=== PATIENT | female | born 1945 | race Caucasian/White ===

== ENCOUNTER 2016-10-20 12:48 | Inpatient (IN) | payer OTHER ==
[~2016-10-20 12:48] MED LIST: ABILIFY 2MG2 MG PO; ATIVAN0.5 MG PO; BENADRYL ALLERG25 M1 PO; ESCITALOPRAM10 MG PO; LORAZEPAM1 POW; MEGACE PO; NAMENDA10 MG PO; RISPERDAL0.25 MG PO; RISPERIDONE0.5 MG PO; RITE AID MELATO10 MG PO; TRAMADOL50 MG PO; TRAZODONE HYDRO50 MG PO; TRAZODONE100 MG PO; TRAZODONE50 MG PO
--- NOTE | 2016-10-20 13:00 | NUR ---
JERRI FROM SNF AFTER STAFF NOTED TREMBLING DURING SHOWER. PT WITH DEMENTIA, NONVERBAL AT BASELINE, PER W10 "BRIEF UNRESPONSIVE EPISODE/UNCONTROLLABLE SHAKING." PER W10 BP 100/72 AFTER EPISODE, 02 SATS 94% ON 15L NRB. ON EMS ARRIVAL BP 120S/70S, 02 SATS MID-HIGH 90S ON RA. PT ARRIVES NONVERBAL, MOVING ARMS PURPOSEFULLY WITH STIMULI, DOES NOT FOLLOW COMMANDS.
--- NOTE | 2016-10-20 13:27 | NUR ---
PCXR DONE, PT TO CT SCAN. PRIVATE AID AT BEDSIDE, SHE HAS WORKED W/PT FOR SEVERAL YEARS AND REPORTS PT IS CURRENTLY AT HER BASELINE IN EVERY WAY. ALSO REPORTS PT HAS HAD SIMILAR EPISODES IN THE PAST, DOES NOT BELIEVE PT EVER HAD A TRUE WORKUP SHE BELIEVES THAT PT'S SPOUSE DID NOT WANT IT (SPOUSE HAD BEEN MAKING DECISIONS FOR PT BUT HAS NOW ; DAUGHTER LIVES OUT OF STATE).
--- NOTE | 2016-10-20 13:40 | ED GENERAL ADULT ---
History of Present Illness General Chief Complaint: Syncope and Near-Syncope Stated Complaint: NEAR SYNCOPE Source: EMS, friend Exam Limitations: clinical condition Vital Signs & Intake/Output Vital Signs & Intake/Output Vital Signs Date Time Temp Pulse Resp B/P Pulse O2 O2 Flow FiO2 Ox Delivery Rate 10/22 1504 98.8 80 20 150/98 ED Intake and Output 10/23 0000 10/22 1200 Intake Total 820 100 Output Total Balance 820 100 Intake, IV 100 Intake, Oral 820 Allergies Coded Allergies: Penicillins (UNKNOWN 10/20/16) STATINS (UNKNOWN 03/22/15) Sulfa (Sulfonamide Antibiotics) (UNKNOWN 10/20/16) shellfish derived (UNKNOWN 10/20/16) SEAFOOD Uncoded Allergies: UNSPECIFIED MED (PER [place] TO UNSPECIFIED MED? 05/25/14) Reconcile Medications Acetaminophen (Tylenol) 325 MG TABLET 2 TAB PO Q6HP PRN PAIN/FEVER (Reported) Acetaminophen (Acephen) 120 MG SUPP.RECT 650 MG NE Q6HP PRN PAIN/FEVER ( Reported) Bisacodyl (Dulcolax) 10 MG SUPP.RECT 1 SUP RC DAILY PRN CONSTIPATION IF MOM INEFFECTIV (Reported) Cranberry Extract (Cranberry) (Unknown Strength) CAPSULE (Unknown Dose) PO DAILY UTI PROPHYLAXIS (Reported) Docusate Sodium (Colace) 100 MG CAPSULE 1 CAP PO DAILY CONSTIPATION (Reported ) Levetiracetam (Keppra) 500 MG TABLET 1 TAB PO BID Seizure Lorazepam (Ativan) 0.5 MG TABLET 1 TAB PO TID AGITATION (Reported) Magnesium Hydroxide (Milk Of Magnesia) 400 MG/5 ML ORAL.SUSP 5 ML PO BID PRN CONSTIPATION (Reported) Na Phos,M-B/Na Phos,Di-Ba (Fleet Enema) 19 GRAM-7 GRAM/118 ML ENEMA 1 E RC ONCE PRN CONSTIPATION (Reported) Naloxone HCl (Narcan) 4 MG/ACTUATION SPRAY OPIOID OVERDOSE (Reported) Nitrofurantoin Monohyd/M-Cryst (Macrobid 100 MG Capsule) 100 MG CAPSULE 50 MG PO DAILY UTI PROPHYLAXIS (Reported) Oxycodone HCl/Acetaminophen (Percocet 5-325 MG Tablet) 5 MG-325 MG TABLET 1 TAB PO TID PAIN (Reported) Sertraline HCl (Zoloft) 100 MG TABLET 200 MG PO DAILY MENTAL HEALTH (Reported ) Trazodone HCl 50 MG TABLET 50 MG PO DAILY AGITATION (Reported) Trazodone HCl 50 MG TABLET 25 MG PO DAILY AGITATION (Reported) TRAZODONE HCL (Trazodone HCl) 100 MG TABLET 1 TAB PO AT BEDTIME AGITATION ( Reported) Triage Note: JERRI FROM SNF AFTER STAFF NOTED TREMBLING DURING SHOWER. PT WITH DEMENTIA, NONVERBAL AT BASELINE, PER W10 "BRIEF UNRESPONSIVE EPISODE/UNCONTROLLABLE SHAKING." PER W10 BP 100/72 AFTER EPISODE, 02 SATS 94% ON 15L NRB. ON EMS ARRIVAL BP 120S/70S, 02 SATS MID-HIGH 90S ON RA. PT ARRIVES NONVERBAL, MOVING ARMS PURPOSEFULLY WITH STIMULI, DOES NOT FOLLOW COMMANDS. Triage Nurses Notes Reviewed? yes HPI: this patient is a 71-year-old female who is brought into the emergency department today by ambulance from [facility] accompanied by her home theater experience expert who has been with her for approximately 2-1/2 years for evaluation of a shaking episode at the facility. The patient is nonverbal at baseline. The patient's aide reported that she is currently acting at her baseline. The patient's aide reported that she did not witness this specific episode, but when she was going to visit the patient, she saw that they had laid her down on the floor after the episode with a nasal cannula in. She was told of the patient started shaking during the shower. The patient's aide reported that she has had many episodes similar to this in the past for which she has never been hospitalized for. She does not have an official diagnosis of seizures, but reported that she seems to have seizure-like activity every once in a while. The patient does not have any vomiting or diarrhea. No incontinence of stool or bowel. No tongue biting. The patient's approximately 4 months ago who was caring for her. Her daughter is now her power of trademark attorney. (RON BANUELOS PA-C) Past History Travel History Traveled to [place] past 21 day No Medical History Any Pertinent Medical History? see below for history Neurological: Alzheimer's disease, dementia, Parkinson's disease Cardiovascular: aortic aneurysm, hypertension, PAD Gastrointestinal: GERD Musculoskeletal: falls, osteoarthritis Surgical History Surgical History: N Psychosocial History What is your primary language Maori Tobacco Use: Cognitive Impairment ETOH Use: 6 Family History Hx Contributory? No (RON BANUELOS PA-C) Review of Systems Review of Systems Constitutional: Reports: no symptoms. Neurological/Psychological: Reports: see HPI. Comments unable to obtain full review of systems due to this patient's age. (LAKISHA FINN,RON) Physical Exam Physical Exam General Appearance: well developed/nourished, no apparent distress, alert, awake Comments: Well-developed well-nourished person in no acute distress HEENT: Normal EENT exam, head normocephalic, moist mucous membranes, head atraumatic. No Bony deformities or step-offs of the skull PERRLA bilaterally Nose is atraumatic. Neck: Supple, no lymphadenopathy Back: Normal inspection Cardiovascular: Regular rate and rhythm with no murmurs, rubs, or gallops Respiratory: No respiratory distress. Breath sounds clear to auscultation bilaterally with no wheezes, rales, rhonchi Abdomen: Soft, nontender nondistended, no appreciable organomegaly. Normal bowel sounds. No ascites Extremity: No edema, normal and equal pulses. Neuro: Alert, cranial nerves II through XII grossly intact. No facial droop Skin: No appreciable rash on exposed skin, skin is warm and dry. Psych: Mood and affect is normal Core Measures ACS in differential dx? Yes CVA/TIA Diagnosis: No Severe Sepsis Present: No Septic Shock Present: No (LAKISHA FINN,RON) Progress Differential Diagnoses I considered the following diagnoses in my evaluation of the patient: [TIA/CVA, seizure, syncope, PE, ACS, pneumonia, urinary tract infection] Diagnostic Imaging: Viewed by Me: Radiology Read, CT Scan. Discussed w/RAD: Radiology Read, CT Scan. Radiology Impression: PATIENT: CONCHITA WILKINSON PRESENT AGE: 71 PATIENT ACCOUNT NO: [id number] : 43 LOCATION: [facility] ORDERING PHYSICIAN: RON BANUELOS PA-C SERVICE DATE: 10/20/166014 EXAM TYPE: RAD - CT HEAD WO IV CONTRAST; XRY-PORTABLE CHEST XRAY EXAMINATION: CT HEAD WITHOUT CONTRAST CHEST X-RAY CLINICAL INFORMATION: Evaluate for intracranial hemorrhage COMPARISON: CT head dated 05/25/2014 TECHNIQUE: Contiguous axial CT slices through the head. AP chest CT head DLP: 1058.32 FINDINGS: CT HEAD: Examination is degraded by patient motion despite of the repeat images. No definite evidence of acute intra-axial or extra-axial hemorrhage. No definite evidence of acute mass effect or midline shift. Prominence of the ventricles and sulci compatible with age-related involutional changes. Periventricular white matter low- attenuation consistent with microvascular ischemic disease. No acute loss of waterman-white differentiation appreciated. Wedge-shaped encephalomalacia right inferior cerebellum compatible with old infarct represents an interval change compared to the prior study. Stable 1.2 cm calcified meningioma noted again along the left posterior falx. Visualized paranasal sinuses and the mastoid air cells are well aerated. Small polyp or retention cyst suspected in the right sphenoid sinus. Visualized osseous structures are intact. CHEST X-RAY Stable cardiomediastinal silhouette. Further uncoiling of the thoracic aorta. Linear subsegmental atelectatic changes noted in the left base. No acute airspace opacity. Mild prominence of the pulmonary markings compatible with chronic change. Degenerative changes bilateral shoulders. IMPRESSION: CT HEAD CT head degraded by patient motion 1. No acute intracranial pathology. 2. 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 3. Moderate thoracic ischemic disease. 4. Stable calcified meningioma along the left posterior falx. CHEST X-RAY No acute pulmonary disease. Chronic changes. DICTATED BY: TESFAYE DE LEON MD DATE/TIME DICTATED:10/20/161356 TRENCH DIGGER HELPER:EMMA DATE/TIME TRANSCRIBED:10/20/161356 CONFIDENTIAL, DO NOT COPY WITHOUT APPROPRIATE AUTHORIZATION. <Electronically signed in Other Vendor System> SIGNED BY: TESFAYE DE LEON MD 10/20/16 1416 Initial ED EKG: normal axis, normal intervals, no ST T wave changes, 74 BPM Repeat EKG: unchanged (75BPM) Comments: 10/20/2016 2:39:31 PM: RN performed stool guaiac. Brown stool heme-negative guaiac 10/20/2016 3:11:15 PM: Dr. Johnson at the patient's bedside for [id number] evaluation. 10/20/2016 3:25:46 PM: Patient is actively seizing. We'll give her 500 IV of Keppra and 1 mg of Ativan. Patient's aid reported that she has seen a neurologist in the past but is unsure of who this was. We will page our on-call neurologist. This patient will be admitted to the hospital. 10/20/2016 3:32:12 PM: I spoke to this patient's daughter and power of trademark attorney, SHELLI. Her cell phone number is [phone] 10/20/2016 3:38:00 PM: I discussed this patient with on-call neurologist, Dr. Murcia. He will consult on this patient in the morning. (RON BANUELOS PA-C) Differential Diagnoses I considered the following diagnoses in my evaluation of the patient: Plan of Care: Orders Procedure Date/time Status Turn and Reposition 10/22 1222 Active Skin Integrity Protocol 10/22 1222 Active Discharge Patient 10/[address] Chaves for admission. Dr. Hernandez was consulted. Patient was given a dose of IV Ativan, IV Keppra was given. Patient with history of similar episodes but no formal workup by neurology that is known at this time. (XIN RODRIGUEZ,MERI) Departure Departure Disposition: STILL A PATIENT Condition: Stable Clinical Impression Primary Impression: Seizure Referrals: ARYAN RODRIGUEZ,POORNIMA Severino (PCP/Family) Departure Forms: Customer Survey General Discharge Information Prescriptions: Current Visit Scripts Levetiracetam (Keppra) 1 TAB PO BID #60 TAB Admission Note Spoke With: MORGAN CHAVES MD Documentation of Exam: Documentation of any treatments & extenuating circumstances including Concerns Regarding Discharge (functional status, medication knowledge or non-compliance, living conditions, etc.) that warrant an admission rather than observation: [ This patient is a 71-year-old female with a past medical history including hypertension, Alzheimer's disease, and Parkinson's who presented to the emergency department from a SNF. The patient has been actively seizing here in the emergency department. She will need to be admitted to telemetry for neurology consultation, IV Keppra, EEG, repeat chest x-ray, trend the labs, and close monitoring. Premature discharge could prove medically harmful.] (RON BANUELOS PA-C) Departure Time of Disposition: 1604 Admission Note Spoke With: MORGAN CHAVES MD PA/CATERING DRIVER Co-Sign Statement Statement: ED Attending supervision documentation- [X] I saw and evaluated the patient. I have also reviewed all the pertinent lab results and diagnostic results. I agree with the findings and the plan of care as documented in the PA's/CATERING DRIVER's documentation. [X] I have reviewed the ED Record and agree with the PA's/CATERING DRIVER's documentation. [] Additions or exceptions (if any) to the PAs/CATERING DRIVER's note and plan are summarized below: [] (XIN RODRIGUEZ,MERI) Critical Care Note Critical Care Note Critical Care Time: 30-74 min (LAKISHA FINN,RON) Critical Care Note Critical Care Time: 30-74 min (RON BANUELOS PA-C)
[2016-10-20 13:52] LABS: ABSOLUTE BASOPHIL COUNT 0 /CUMM (0.0-0.2); ABSOLUTE EOSINOPHIL COUNT 0.1 /CUMM (0.0-0.7); ABSOLUTE MONOCYTE COUNT 0.5 /CUMM (0.10-0.60); BASOPHIL % 0.3 % (0.0-2.0); EOSINOPHIL % 0.7 % (0-5); MEAN CORPUSCULAR HGB 26.4 PG (27.0-31.0)
[2016-10-20 13:57] LABS: ABSOLUTE GRANULOCYTE CT 7.5 /CUMM (1.4-6.5); ABSOLUTE LYMPH COUNT 0.8 /CUMM (1.2-3.4); HEMATOCRIT 35.8 % (37-47); MEAN CORPUSCULAR HGB CONC 33.2 G/DL (33.0-37.0); MEAN CORPUSCULAR VOLUME 79.6 FL (81.0-99.0); MEAN PLATELET VOLUME 8.5 FL (7.4-10.4); RBC DISTRIBUTION WIDTH 16.3 % (11.5-14.5)
[2016-10-20 14:10] LABS: WHITE BLOOD CELL COUNT 8.9 /CUMM (4.8-10.8)
--- NOTE | 2016-10-20 14:13 | NUR ---
BACK FROM CT. BLOOD SENT (SST/LAV/BLUE/PRIETO). STRAIGHT CATH FOR 50CC CLEAR YELLOW URINE, URINE TRIO SENT. PT SEEN BY CLIVE BANUELOS.
[2016-10-20 14:14] LABS: GRANULOCYTE % 84.7 % (42.2-75.2); PLATELET COUNT 256 /CUMM (130-400)
--- NOTE | 2016-10-20 14:16 | RADIOLOGY REPORT ---
EXAMINATION: CT HEAD WITHOUT CONTRAST CHEST X-RAY CLINICAL INFORMATION: Evaluate for intracranial hemorrhage COMPARISON: CT head dated 05/25/2014 TECHNIQUE: Contiguous axial CT slices through the head. AP chest CT head DLP: 1058.32 FINDINGS: CT HEAD: Examination is degraded by patient motion despite of the repeat images. No definite evidence of acute intra-axial or extra-axial hemorrhage. No definite evidence of acute mass effect or midline shift. Prominence of the ventricles and sulci compatible with age-related involutional changes. Periventricular white matter low-attenuation consistent with microvascular ischemic disease. No acute loss of waterman-white differentiation appreciated. Wedge-shaped encephalomalacia right inferior cerebellum compatible with old infarct represents an interval change compared to the prior study. Stable 1.2 cm calcified meningioma noted again along the left posterior falx. Visualized paranasal sinuses and the mastoid air cells are well aerated. Small polyp or retention cyst suspected in the right sphenoid sinus. Visualized osseous structures are intact. CHEST X-RAY Stable cardiomediastinal silhouette. Further uncoiling of the thoracic aorta. Linear subsegmental atelectatic changes noted in the left base. No acute airspace opacity. Mild prominence of the pulmonary markings compatible with chronic change. Degenerative changes bilateral shoulders. IMPRESSION: CT HEAD CT head degraded by patient motion 1. No acute intracranial pathology. 2. 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 3. Moderate thoracic ischemic disease. 4. Stable calcified meningioma along the left posterior falx. CHEST X-RAY No acute pulmonary disease. Chronic changes.
--- NOTE | 2016-10-20 14:22 | NUR ---
PT INCONTINENT OF URINE AND STOOL, CLEANED AND CHANGED, GUIAC NEG, SKIN INTACT WITH SOME SCARS NOTED. AWAITING RESULTS, PRIVATE AIDE AT BEDSIDE.
[2016-10-20] MEDS ORDERED: PERCOCET 5-3251 EACH PO (14:36)
[2016-10-20] MEDS ORDERED: ATIVAN0.5 M1 PO (14:36)
[2016-10-20] MEDS ORDERED: MACROBID 100 M100 MG PO (14:37)
[2016-10-20] MEDS ORDERED: TRAZODONE HCL50 M1 PO (14:37)
[2016-10-20] MEDS ORDERED: NARCAN4 MG (14:38)
[2016-10-20] MEDS ORDERED: ZOLOFT100 M1 PO (14:38)
[2016-10-20] MEDS ORDERED: COLACE100 M1 PO (14:38)
[2016-10-20] MEDS ORDERED: TYLENOL325 M1 PO (14:39)
[2016-10-20] MEDS ORDERED: CRANBERRY200 MG PO (14:39)
[2016-10-20] MEDS ORDERED: MILK OF MA400 MG/52 PO (14:41)
[2016-10-20] MEDS ORDERED: ACEPHEN120 M1 PR (14:41)
[2016-10-20] MEDS ORDERED: FLEET ENEMA133 ML RC (14:42)
[2016-10-20] MEDS ORDERED: DULCOLAX10 M1 RC (14:42)
--- NOTE | 2016-10-20 15:44 | NUR ---
MST WAS ATTEMPTING REPEAT EKG PT HAD GENERALIZED TONIC-CLONIC SEIZURE. DR LAUREN AND CLIVE BANUELOS AT BEDSIDE, SEIZURE ACTIVITY LASTED APPROX 60-90 SEC, PT GIVEN ATIVAN 1MG IV BUT SEIZURE ACTIVITY APPEARED TO HAVE RESOLVED SPONTANEOUSLY.
--- NOTE | 2016-10-20 17:11 | NUR ---
PT APPEARS COMFORTABLE/VSS, NO FURTHER SZ ACTIVITY.
--- NOTE | 2016-10-20 17:18 | History & Physical ---
GREG MESA MD 10/20/16 3555: General Information and HPI MD Statement: I have seen and personally examined CONCHITA WILKINSON and documented this H&P. The patient is a 71 year old F who presented with a patient stated chief complaint of [seizures]. Source of Information: patient, family, W10 Exam Limitations: unable to give history History of Present Illness: 71-year-old female with PMH of alzheimers, parkinsons, aortic anerysm, HTN, presented for possible seizure. As per W10, pt was shaking while in the shower. BP was 100/72, sat 94% on 15L NRB. On ED presentation, she was satting well on RA. As pt is nonverbal at baseline and no information can be obtained from her, I got most of the information from the nurse. Pt has lived in an assisted living ( [facility]) until 2 days ago, she moved to [facility]. As per her home health aide for years (who was not present at bedside), pt has baseline right arm and lip twitches, and intermittently has generalized shaking. Her (who usually makes all the decisions for her) recently 4 months ago. In the ED, she had a 2 minute episode of generalized shaking with foaming. She was given one time ativan and keppra in the ED. Dr. Colón was called from the ED and he will see the pt in the morning. As per daughter (whom we spoke to over the phone, and she lives in [place]), pt had 2 seizure episodes prior, even though she has never been formally diagnosed. Pt's code status is DNR/DNI. Allergies/Medications Allergies: Coded Allergies: Penicillins (UNKNOWN 10/20/16) STATINS (UNKNOWN 03/22/15) Sulfa (Sulfonamide Antibiotics) (UNKNOWN 10/20/16) shellfish derived (UNKNOWN 10/20/16) SEAFOOD Uncoded Allergies: UNSPECIFIED MED (PER [place] TO UNSPECIFIED MED? 05/25/14) Home Med list Acetaminophen (Tylenol) 325 MG TABLET 2 TAB PO Q6HP PRN PAIN/FEVER (Reported) Acetaminophen (Acephen) 120 MG SUPP.RECT 650 MG DE Q6HP PRN PAIN/FEVER ( Reported) Bisacodyl (Dulcolax) 10 MG SUPP.RECT 1 SUP RC DAILY PRN CONSTIPATION IF MOM INEFFECTIV (Reported) Cranberry Extract (Cranberry) (Unknown Strength) CAPSULE (Unknown Dose) PO DAILY UTI PROPHYLAXIS (Reported) Docusate Sodium (Colace) 100 MG CAPSULE 1 CAP PO DAILY CONSTIPATION (Reported ) Lorazepam (Ativan) 0.5 MG TABLET 1 TAB PO TID AGITATION (Reported) Magnesium Hydroxide (Milk Of Magnesia) 400 MG/5 ML ORAL.SUSP 5 ML PO BID PRN CONSTIPATION (Reported) Na Phos,M-B/Na Phos,Di-Ba (Fleet Enema) 19 GRAM-7 GRAM/118 ML ENEMA 1 E RC ONCE PRN CONSTIPATION (Reported) Naloxone HCl (Narcan) 4 MG/ACTUATION SPRAY OPIOID OVERDOSE (Reported) Nitrofurantoin Monohyd/M-Cryst (Macrobid 100 MG Capsule) 100 MG CAPSULE 50 MG PO DAILY UTI PROPHYLAXIS (Reported) Oxycodone HCl/Acetaminophen (Percocet 5-325 MG Tablet) 5 MG-325 MG TABLET 1 TAB PO TID PAIN (Reported) Sertraline HCl (Zoloft) 100 MG TABLET 200 MG PO DAILY MENTAL HEALTH (Reported ) TRAZODONE HCL (Trazodone HCl) 100 MG TABLET 1 TAB PO AT BEDTIME AGITATION ( Reported) Trazodone HCl 50 MG TABLET 50 MG PO DAILY AGITATION (Reported) Trazodone HCl 50 MG TABLET 25 MG PO DAILY AGITATION (Reported) Past History Travel History Traveled to [place] past 21 day No Medical History Neurological: Alzheimer's disease, dementia, Parkinson's disease Cardiovascular: aortic aneurysm, hypertension, PAD Gastrointestinal: GERD Musculoskeletal: falls, osteoarthritis Surgical History Surgical History: unobtainable Past Family/Social History Family History Relations & Conditions if any Relation not specified for: *No pertinent family history Psychosocial History Where do you live? Intermediate Facility Functional Ability ADLs Needs Assist: dressing, eating, toileting, bathing. IADLs Needs Assist: shopping, housework, finances, food prep, telephone, transportation, medication admin. Review of Systems Review of Systems Constitutional: Reports: see HPI. Exam & Diagnostic Data Last 24 Hrs of Vital Signs/I&O Vital Signs Date Time Temp Pulse Resp B/P Pulse O2 O2 Flow FiO2 Ox Delivery Rate 10/20 1711 98.8 82 18 151/70 94 Room Air 10/20 1556 98.8 75 22 114/56 93 Room Air 10/20 1534 98.3 79 18 137/55 95 Room Air 10/20 1526 166/90 10/20 1450 98.9 82 18 141/81 96 Room Air 10/20 1423 96 10/20 1254 96.6 87 18 123/82 95 Room Air Intake & Output 10/20 1600 10/20 0800 10/20 0000 Intake Total Output Total 60 Balance -60 Output, Urine 60 Physical Exam General Appearance Does not respond to verbal or physical stimuli, lying on the bed comfortably with intermittent right arm twitches Skin No Significant Lesion HEENT Atraumatic Neck Supple, No JVD, +2 Carotid Pulse wo Bruit Lymphatic Axillary nl, Cervical nl Cardiovascular Regular Rate, Normal S1, Normal S2, No Murmurs, Gallops, Rubs Lungs Clear to Auscultation, Normal Air Movement Abdomen Normal Bowel Sounds, Soft, No Tenderness Extremities No Edema, Normal Pulses Last 24 Hrs of Labs/Sergio: Laboratory Tests 10/20/16 1410: Urinalysis LIGHT H, Urine Color YEL, Urine Clarity HAZY H, Urine pH 6.0, Ur Specific [place] >= 1.030, Urine Protein 30 H, Urine Ketones NEG, Urine Nitrite NEG, Urine Bilirubin NEG, Urine Urobilinogen 0.2, Ur Leukocyte Esterase NEG, Ur Microscopic SEDIMENT EXAMINED, Urine RBC 1-3, Urine WBC 1-3 H, Ur Epithelial Cells FEW, Granular Casts 5-10 H, Urine Hemoglobin SMALL H, Urine Glucose NEG 10/20/16 1340: Anion Gap 13, Estimated GFR > 60, BUN/Creatinine Ratio 14.4, Glucose 98, Calcium 9.0, Total Bilirubin 0.6, AST 17, ALT 27, Alkaline Phosphatase 121, Troponin I < 0.01, Total Protein 7.0, Albumin 3.7, Globulin 3.3, Albumin/Globulin Ratio 1.1, Prolactin 19.7 H, CBC w Diff NO MAN DIFF REQ, RBC 4.50, MCV 79.6 L, MCH 26.4 L, RDW 16.3 H, MPV 8.5, Gran % 84.7 H, Lymphocytes % 8.6 L, Monocytes % 5.7, Eosinophils % 0.7, Basophils % 0.3, Absolute Granulocytes 7.5 H, Absolute Lymphocytes 0.8 L, Absolute Monocytes 0.5, Absolute Eosinophils 0.1, Absolute Basophils 0, PUBS MCHC 33.2 Diagnostic Data EKG Results SR 83 QTc 492 CXR Results CHEST X-RAY No acute pulmonary disease. Chronic changes. Other Results IMPRESSION: CT HEAD CT head degraded by patient motion 1. No acute intracranial pathology. 2. 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 3. Moderate thoracic ischemic disease. 4. Stable calcified meningioma along the left posterior falx. DICTATED BY: TESFAYE DE LEON MD DATE/TIME DICTATED:10/20/161356 Assessment/Plan Assessment: 71-year-old female with PMH of alzheimers, parkinsons, aortic anerysm, HTN, presented for generalized shaking, suspicious for seizure. She had a 2 minute episode of generalized shaking associated with foaming at the mouth in the ED, for which keppra and ativan was given. # Seizure - Neuro (Dr. Colón) was called by ED and will see patient tomorrow. We called for a formal consult as well * EEG * Seizure precautions * Keppra for seizures # Continue home meds Percocet 5/325 1 tabe tid 6am, 2pm, 9pm Ativan 0.5mg po tid 8am 2pm 8pm/hs Macrobid 50 mg PO qd 9am (prophylaxis, no stop date) Cranberry tab qd 9am Trazodone 50 mg po 3pm for agitation Trazodone 25 mg qd 6am Zoloft 200 mg po qd 9am Colace 100 mg po qd 9am Dulcolax 10 mg supp prn Fleet enema DE PRN Milk mag prn Tylenol 325 mg po for general discomfort Narcan PRN Diet: Regular DVT ppx: mech and pharm DNR/DNI As Ranked By This Provider Problem List: 1. Seizure Core Measures/Miscellaneous Acute Coronary Syndrome ACS Diagnosis: No Cerebrovascular Accident CVA/TIA Diagnosis: No Congestive Heart Failure CHF Diagnosis: No Venous Thromboembolism VTE Risk Factors: Age > 40 VTE Prophylaxis Ordered Inpt: Mech & Pharm No Mech VTE prophylaxis d/t: No contraindications No VTE Pharm Prophylaxis d/t: No contraindications VTE Diagnosis: No VTE Type: NONE VTE Confirmed by (Test): NONE Severe Sepsis Severe Sepsis Present: No Septic Shock Septic Shock Present: No Miscellaneous Documentation Attending Case Discussed With: MORGAN CHAVES MD Primary Care Physician: POORNIMA BAEZA MD Patient sees these Specialists Unknown Level of Patient Care: Telemetry LEIF STOKES 10/20/16 2137: Resident Review Statement Resident Statement: examined this patient, discussed with internship, agreed with internship, discussed with family, reviewed EMR data (avail), discussed with nursing , discussed with case mgmt, reviewed images, amended to note Other Findings: 71-year-old female with a past medical history of Alzheimer's, Parkinson's, aortic aneurysm, hypertension presented [facility] ED [facility] a [facility] where she may have underwent a possible seizure. Patient is nonverbal at baseline and so much of the history was obtained from the W 10 as well as the nursing facility. Apparently patient has had baseline right arm and lip twitches as well as intermittent generalized shaking. Going through ED records reveals that she was brought in by ambulance from [facility] facility after she was found to have trembling while taking a shower with him brief episode of unresponsiveness. Her blood pressure at that time was 100/72 with O2 saturations 94% on 15 L of nonrebreather mask however patient's oxygen saturations are 93% on room air. In the ER she had a two-minute episode of generalized shaking with warming and was given a one-time dose of Ativan and 500 mg of IV Keppra. Neurology was consulted from ER and he will evaluate the patient in the morning. Rest of the history please refer to 's note above. Vitals at the time of admission blood pressure 114/56, respiratory rate 22, pulse 75, afebrile saturating 93% on room air. Physical exam is much limited as patient is nonverbal and completely mute. HEENT revealed PERRLA, dry mucous membranes. Cardiovascular exam was benign with normal S1, S2, no S3 or S4 or murmurs or rubs or gallops appreciated. Chest was clear to auscultation bilaterally. Abdominal exam was benign and abdomen soft, nontender, nondistended with normal bowel sounds in all 4 quadrants. Examination of the lower extremities did not reveal any edema. Labs pertinent for microcytic anemia withan H&H of 11.9/35.8, platelet count of 256,000. Serum chemistries were unremarkable with a sodium of 141, potassium of 3.7, BUN 13, creatinine 0.9 and a normal blood glucose of 98. LFTs were unremarkable and troponin was negative at 0.01. Of note his serum prolactin was elevated to 19.4. UA is hazy with proteinuria, 1-3 white blood cells, granular casts and hemoglobin. Chest x-ray did not reveal any acute pulmonary disease and a CT head was negative for any acute intracranial pathology. 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 There is also stable calcified meningioma along the left posterior falx. EKG revealed normal sinus rhythm, heart rate of 83 with a QTC of 492. Assessment and plan Admit patient to telemetry. # Seizure 2/2 meningimoma? (no abnormalities on labs) She already received a dose of 500 of IV Keppra and 1 mg of IV Ativan We'll continue her on Keppra 500 mg twice a day IV for now Neurology consult in a.m. Follow-up EEG Maintain on seizure precautions Maintain all aspiration precautions #Anxiety and agitation Continue on Zoloft. For now will hold on trazodone. Avoid delirium triggers. DVT prophylaxis Heparin 5000 international units 3 times a day subcutaneous Diet Regular and thins as per W 10 CODE STATUS DNR/DNI - confirmed with daughter who is POA. MORGAN CHAVES MD 10/21/16 1604: Attending MD Review Statement Attending Statement Attending MD Statement: examined this patient, discuss w/resident/PA/BULB GROWER, agreed w/resident/PA/BULB GROWER, reviewed EMR data (avail) Attending Assessment/Plan: 71F PMH HTN, dementia admitted for new onset seizures. Patient had witnessed GTC seizure in SNF and in ED, and per family has been having similar episodes 1- 2x/yr for several years. Currently well with no complaints, stable vitals, labs reviewed. Plan - Admit to telemetry - Continue Keppra 500mg BID - Neurology consult - OBtain EEG - Monitor electrolytes - Continue home medications - Seizure precautions - DVT PPx
--- NOTE | 2016-10-20 17:55 | NUR ---
SEEN BY HOUSE STAFF.
--- NOTE | 2016-10-20 18:17 | NUR ---
REPORT CALLED TO HARIKA ON [address], PT TO GO TO 174-02 AND ROOM IS READY.
[2016-10-20 19:00] VITALS: BP 122/78
[2016-10-21 00:58] VITALS: BP 146/92
[2016-10-21 08:00] VITALS: BP 140/100
[2016-10-21 08:25] LABS: ABSOLUTE BASOPHIL COUNT 0 /CUMM (0.0-0.2); ABSOLUTE EOSINOPHIL COUNT 0.1 /CUMM (0.0-0.7); ABSOLUTE GRANULOCYTE CT 5.7 /CUMM (1.4-6.5); ABSOLUTE LYMPH COUNT 1.2 /CUMM (1.2-3.4); ABSOLUTE MONOCYTE COUNT 0.5 /CUMM (0.10-0.60); BASOPHIL % 0.4 % (0.0-2.0); EOSINOPHIL % 1.1 % (0-5); GRANULOCYTE % 76.3 % (42.2-75.2); MEAN CORPUSCULAR HGB 26.5 PG (27.0-31.0); MEAN CORPUSCULAR HGB CONC 33.2 G/DL (33.0-37.0); MEAN CORPUSCULAR VOLUME 79.9 FL (81.0-99.0); MEAN PLATELET VOLUME 8.9 FL (7.4-10.4); PLATELET COUNT 247 /CUMM (130-400); RBC DISTRIBUTION WIDTH 16.4 % (11.5-14.5); WHITE BLOOD CELL COUNT 7.5 /CUMM (4.8-10.8)
--- NOTE | 2016-10-21 08:33 | PN- Housestaff ---
See Addendum Subjective Follow-up For: Generalized shaking, suspicious for seizure Tele-Events Since Last Visit: NSR HR 70-80, no overnight events. Subjective: Patient seen and examined at bedside this AM. She is sitting up comfortably in bed and alert. She is non-verbal at baseline and unable to provide ROS or answer any questions. She is surrounded by padding if other episodes of generalized shaking should occur (though no futher reports of this since the ED). Review of Systems Constitutional: Reports: see HPI. Objective Last 24 Hrs of Vital Signs/I&O Vital Signs Date Time Temp Pulse Resp B/P Pulse O2 O2 Flow FiO2 Ox Delivery Rate 10/21 0800 98.6 66 20 140/100 94 Room Air 10/21 0058 99.4 83 20 146/92 95 Room Air 10/20 1900 Room Air Room Air 10/20 1900 98.9 82 18 122/78 96 Room Air 10/20 1830 97.7 85 20 150/69 96 Room Air 10/20 1711 98.8 82 18 151/70 94 Room Air 10/20 1556 98.8 75 22 114/56 93 Room Air 10/20 1534 98.3 79 18 137/55 95 Room Air 10/20 1526 166/90 10/20 1450 98.9 82 18 141/81 96 Room Air 10/20 1423 96 10/20 1254 96.6 87 18 123/82 95 Room Air Intake & Output 10/21 1600 10/21 0800 10/21 0000 Intake Total 100 Output Total Balance 100 Intake, IV 100 Physical Exam General Appearance: Alert, No Acute Distress Skin: No Significant Lesion HEENT: Atraumatic, Mucous Membr. moist/pink Neck: Supple, No JVD, No thryomegaly Lymphatic: Axillary nl, Cervical nl Cardiovascular: Regular Rate, Normal S1, Normal S2, No Murmurs, Gallops, Rubs Lungs: Clear to Auscultation, Normal Air Movement Abdomen: Normal Bowel Sounds, Soft, No Tenderness Neurological: Normal Tone Extremities: No Clubbing, No Cyanosis, No Edema Current Medications: Current Medications Sig/Fabby Start time Last Medication Dose Route Stop Time Status Admin Acetaminophen 650 MG Q6P PRN 10/20 2044 AC PO Docusate Sodium 100 MG DAILY 10/21 1000 AC 10/21 PO 0852 Heparin Sodium 5,000 UNIT Q8 10/20 2200 AC 10/21 (Porcine) SC 0702 Hydromorphone HCl 2 MG Q6P PRN 10/20 2044 AC PO Levetiracetam 500 MG Q12H 10/21 1600 AC Sodium Chloride 100 ML IV Levetiracetam 500 MG BID 10/21 0400 DC 10/21 Sodium Chloride 100 ML IV 0436 Levetiracetam 500 MG ONCE ONE 10/20 1530 DC 10/20 Sodium Chloride 100 ML IV 10/20 1544 1533 Lorazepam 0.5 MG TID 10/20 2199 AC 10/21 PO 10/27 2159 0901 Lorazepam 1 MG ONCE ONE 10/20 1530 DC 10/20 IV 10/20 1531 1523 Lorazepam 0 .STK-MED ONE 10/20 1523 DC .ROUTE Oxycodone/ 1 TAB Q6P PRN 10/20 2044 AC Acetaminophen PO Sertraline HCl 200 MG DAILY 10/21 1000 AC 10/21 PO 0851 Last 24 Hrs of Lab/Sergio Results Last 24 Hrs of Labs/Mics: Laboratory Tests 10/21/16 0625: Anion Gap 10, Estimated GFR > 60, BUN/Creatinine Ratio 11.1, CBC w Diff NO MAN DIFF REQ, RBC 4.50, MCV 79.9 L, MCH 26.5 L, RDW 16.4 H, MPV 8.9, Gran % 76.3 H, Lymphocytes % 15.5 L, Monocytes % 6.7, Eosinophils % 1.1, Basophils % 0.4, Absolute Granulocytes 5.7, Absolute Lymphocytes 1.2, Absolute Monocytes 0.5, Absolute Eosinophils 0.1, Absolute Basophils 0, PUBS MCHC 33.2 10/20/16 1410: Urinalysis LIGHT H, Urine Color YEL, Urine Clarity HAZY H, Urine pH 6.0, Ur Specific [place] >= 1.030, Urine Protein 30 H, Urine Ketones NEG, Urine Nitrite NEG, Urine Bilirubin NEG, Urine Urobilinogen 0.2, Ur Leukocyte Esterase NEG, Ur Microscopic SEDIMENT EXAMINED, Urine RBC 1-3, Urine WBC 1-3 H, Ur Epithelial Cells FEW, Granular Casts 5-10 H, Urine Hemoglobin SMALL H, Urine Glucose NEG 10/20/16 1340: Anion Gap 13, Estimated GFR > 60, BUN/Creatinine Ratio 14.4, Glucose 98, Calcium 9.0, Total Bilirubin 0.6, AST 17, ALT 27, Alkaline Phosphatase 121, Troponin I < 0.01, Total Protein 7.0, Albumin 3.7, Globulin 3.3, Albumin/Globulin Ratio 1.1, Prolactin 19.7 H, CBC w Diff NO MAN DIFF REQ, RBC 4.50, MCV 79.6 L, MCH 26.4 L, RDW 16.3 H, MPV 8.5, Gran % 84.7 H, Lymphocytes % 8.6 L, Monocytes % 5.7, Eosinophils % 0.7, Basophils % 0.3, Absolute Granulocytes 7.5 H, Absolute Lymphocytes 0.8 L, Absolute Monocytes 0.5, Absolute Eosinophils 0.1, Absolute Basophils 0, PUBS MCHC 33.2 Orders Radiology Findings: CT HEAD CT head degraded by patient motion 1. No acute intracranial pathology. 2. 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 3. Moderate thoracic ischemic disease. 4. Stable calcified meningioma along the left posterior falx. CHEST X-RAY No acute pulmonary disease. Chronic changes. Assessment/Plan Assessment: Ms. Menendez is a 71-year-old female with PMH of alzheimers, parkinsons, aortic anerysm and HTN who presented for generalized shaking, suspicious for seizure. She had a 2 minute episode of generalized shaking associated with foaming at the mouth in the ED, for which keppra 500 mg IV and 1 mg IV ativan were given. Patient is admitted to the telemetry floor and the following is the management: # Seizure * Possibly 2/2 meningioma? * Head CT negative for acute intracranial pathology * No evidence of bradycardia or arrythmias overnight * Follow up neuro recommendations. Neuro (Dr. Colón) was called by ED and consult pending. * EEG ordered for today, f/u results * Maintain seizure precautions, continue bedside padding * Keppra 500 mg BID IV for seizures * Of note, patient was noted to be drowsy early this AM and night team held ativan due to concerns for oversedation #Anxiety and agitation * Continue zoloft 200 mg po qd 9am, hold trazodone for now * Avoid delirium triggers # Continue home meds Percocet 5/325 1 tabe tid 6am, 2pm, 9pm Ativan 0.5mg po tid 8am 2pm 8pm/hs Macrobid 50 mg PO qd 9am (prophylaxis, no stop date) Cranberry tab qd 9am Colace 100 mg po qd 9am Dulcolax 10 mg supp prn Fleet enema TN PRN Milk mag prn Tylenol 325 mg po for general discomfort Narcan PRN Diet: Regular and thins as per W1- DVT ppx: mech and pharm DNR/DNI (confirmed with daughter, POA) Problem List: 1. Seizure Pain Ratin Pain Location: n/a Pain Goal: Remain pain free Pain Plan: Mild pain pathway. Tomorrow's Labs & Rationales: None.
--- NOTE | 2016-10-21 09:42 | NUR ---
PHYSICAL THERAPY: Recieved consult orders & Reviewed chart. Patient is a 71 y/o F, non-verbal, with dementia. Lives at [facility] w/ 24 hr private [facility]. Per W-10, patient is Deanna Lift Ax2 at baseline. Patient is not appropriate for skilled PT services at this time; P.T. will not follow. Thank you.
--- NOTE | 2016-10-21 15:11 | Cons- Neurology ---
General Information and HPI Consulting Request Date of Consult: 10/21/16 Requested By: MORGAN CHAVES MD History of Present Illness: 71-year-old female with history of Alzheimer disease, progressive who had observed seizure in the [facility] [place]. She had recent PT generalized convulsive activity in hospital ED. Episodes described as generalized shaking and foaming. Patient was given Ativan and levetiracetam. Patient's daughter states that patient likely had a few brief seizure previously. Patient is mute and unable to give history There was no evidence of head trauma with the seizures. Allergies/Medications Allergies: Coded Allergies: Penicillins (UNKNOWN 10/20/16) STATINS (UNKNOWN 03/22/15) Sulfa (Sulfonamide Antibiotics) (UNKNOWN 10/20/16) shellfish derived (UNKNOWN 10/20/16) SEAFOOD Uncoded Allergies: UNSPECIFIED MED (PER [facility] RETIREMENT TO UNSPECIFIED MED? 05/25/14) Home Med List: Acetaminophen (Tylenol) 325 MG TABLET 2 TAB PO Q6HP PRN PAIN/FEVER (Reported) Acetaminophen (Acephen) 120 MG SUPP.RECT 650 MG ID Q6HP PRN PAIN/FEVER ( Reported) Bisacodyl (Dulcolax) 10 MG SUPP.RECT 1 SUP RC DAILY PRN CONSTIPATION IF MOM INEFFECTIV (Reported) Cranberry Extract (Cranberry) (Unknown Strength) CAPSULE (Unknown Dose) PO DAILY UTI PROPHYLAXIS (Reported) Docusate Sodium (Colace) 100 MG CAPSULE 1 CAP PO DAILY CONSTIPATION (Reported ) Lorazepam (Ativan) 0.5 MG TABLET 1 TAB PO TID AGITATION (Reported) Magnesium Hydroxide (Milk Of Magnesia) 400 MG/5 ML ORAL.SUSP 5 ML PO BID PRN CONSTIPATION (Reported) Na Phos,M-B/Na Phos,Di-Ba (Fleet Enema) 19 GRAM-7 GRAM/118 ML ENEMA 1 E RC ONCE PRN CONSTIPATION (Reported) Naloxone HCl (Narcan) 4 MG/ACTUATION SPRAY OPIOID OVERDOSE (Reported) Nitrofurantoin Monohyd/M-Cryst (Macrobid 100 MG Capsule) 100 MG CAPSULE 50 MG PO DAILY UTI PROPHYLAXIS (Reported) Oxycodone HCl/Acetaminophen (Percocet 5-325 MG Tablet) 5 MG-325 MG TABLET 1 TAB PO TID PAIN (Reported) Sertraline HCl (Zoloft) 100 MG TABLET 200 MG PO DAILY MENTAL HEALTH (Reported ) TRAZODONE HCL (Trazodone HCl) 100 MG TABLET 1 TAB PO AT BEDTIME AGITATION ( Reported) Trazodone HCl 50 MG TABLET 50 MG PO DAILY AGITATION (Reported) Trazodone HCl 50 MG TABLET 25 MG PO DAILY AGITATION (Reported) Current Medications: Current Medications Sig/Fabby Start time Last Medication Dose Route Stop Time Status Admin Acetaminophen 650 MG Q6P PRN 10/20 204 AC PO Docusate Sodium 100 MG DAILY 10/21 1000 AC 10/21 PO 0852 Heparin Sodium 5,000 UNIT Q8 10/20 2200 AC 10/21 (Porcine) SC 0702 Hydromorphone HCl 2 MG Q6P PRN 10/20 204 AC PO Levetiracetam 500 MG Q12H 10/21 1600 AC Sodium Chloride 100 ML IV Levetiracetam 500 MG BID 10/21 0400 DC 10/21 Sodium Chloride 100 ML IV 0436 Levetiracetam 500 MG ONCE ONE 10/20 1530 DC 10/20 Sodium Chloride 100 ML IV 10/20 1544 1533 Lorazepam 0.5 MG TID 10/20 2200 AC 10/21 PO 10/27 2159 0901 Lorazepam 1 MG ONCE ONE 10/20 1530 DC 10/20 IV 10/20 1531 1523 Lorazepam 0 .STK-MED ONE 10/20 1523 DC .ROUTE Oxycodone/ 1 TAB Q6P PRN 10/20 204 AC Acetaminophen PO Sertraline HCl 200 MG DAILY 10/21 1000 AC 10/21 PO 0851 Review of Systems Review of Systems: Unable to assess due to advanced dementia Patient is not age agitated although there was previous history of agitation She seems to eat well She does not seem to be in pain There is no observed vomiting There's been no instance of head trauma Patient has been nonverbal for over 1 year Unable to assess other systems due to advanced dementia Past History Travel History Traveled to [place] past 21 day No Medical History Neurological: Alzheimer's disease, dementia, Parkinson's disease Cardiovascular: aortic aneurysm, hypertension, PAD Gastrointestinal: GERD Musculoskeletal: falls, osteoarthritis Surgical History Surgical History: unobtainable Family History Relations & Conditions If Any: Relation not specified for: *No pertinent family history Psychosocial History Where Do You Live? [facility] Smoking Status: Unknown If Ever Smoked Functional Ability ADLs Needs Assist: dressing, eating, toileting, bathing. IADLs Needs Assist: shopping, housework, finances, food prep, telephone, transportation, medication admin. Exam & Diagnostic Data Vital Signs and I&O Vital Signs Date Time Temp Pulse Resp B/P Pulse O2 O2 Flow FiO2 Ox Delivery Rate 10/21 0800 98.6 66 20 140/100 94 Room Air 10/21 0058 99.4 83 20 146/92 95 Room Air 10/20 1900 Room Air Room Air 10/20 1900 98.9 82 18 122/78 96 Room Air 10/20 1830 97.7 85 20 150/69 96 Room Air 10/20 1711 98.8 82 18 151/70 94 Room Air 10/20 1556 98.8 75 22 114/56 93 Room Air 10/20 1534 98.3 79 18 137/55 95 Room Air 10/20 1526 166/90 Intake & Output 10/21 1600 10/21 0800 10/21 0000 Intake Total 400 100 Output Total Balance 400 100 Intake, IV 100 Intake, Oral 400 Number 1 Bowel Movements Physical Exam: Awake Mute Not following commands Heart sounds normal bruits Distal pulses intact Extraocular movements full Fundi benign;' visual liang difficult to assess, no facial weakness, facial sensation unable to assess, will not open mouth to assess palate or tongue, hearing difficult to assess but seems to follow noise Extremities show mild increase in tone Patient moves upper and lower extremities equally Gross strength difficult to assess Patient withdraws to noxious stimuli Deep tendon reflexes hypoactive throughout According to functions grossly intact Gait not assessed; patient has history of falls Last 48 Hours of Lab Results: Laboratory Tests 10/21 10/20 0625 1410 Chemistry Sodium (137 - 145 mmol/L) 142 Potassium (3.5 - 5.1 mmol/L) 3.8 Chloride (98 - 107 mmol/L) 106 Carbon Dioxide (22 - 30 mmol/L) 25 Anion Gap (5 - 16) 10 BUN (7 - 17 mg/dL) 10 Creatinine (0.5 - 1.0 mg/dL) 0.9 Estimated GFR (>60 ml/min) > 60 BUN/Creatinine Ratio (7 - 25 %) 11.1 Hematology CBC w Diff NO MAN DIFF REQ WBC (4.8 - 10.8 /CUMM) 7.5 RBC (4.20 - 5.40 /CUMM) 4.50 Hgb (12.0 - 16.0 G/DL) 11.9 L Hct (37 - 47 %) 36.0 L MCV (81.0 - 99.0 FL) 79.9 L MCH (27.0 - 31.0 PG) 26.5 L RDW (11.5 - 14.5 %) 16.4 H Plt Count (130 - 400 /CUMM) 247 MPV (7.4 - 10.4 FL) 8.9 Gran % (42.2 - 75.2 %) 76.3 H Lymphocytes % (20.5 - 51.1 %) 15.5 L Monocytes % (1.7 - 9.3 %) 6.7 Eosinophils % (0 - 5 %) 1.1 Basophils % (0.0 - 2.0 %) 0.4 Absolute Granulocytes (1.4 - 6.5 /CUMM) 5.7 Absolute Lymphocytes (1.2 - 3.4 /CUMM) 1.2 Absolute Monocytes (0.10 - 0.60 /CUMM) 0.5 Absolute Eosinophils (0.0 - 0.7 /CUMM) 0.1 Absolute Basophils (0.0 - 0.2 /CUMM) 0 PUBS MCHC (33.0 - 37.0 G/DL) 33.2 Urines Urinalysis LIGHT H Urine Color (YEL,AMB,STR) YEL Urine Clarity (CLEAR) HAZY H Urine pH (5.0 - 8.0) 6.0 Ur Specific [place] (1.001 - 1.035) >= 1.030 Urine Protein (NEG,<30 MG/DL) 30 H Urine Ketones (NEG) NEG Urine Nitrite (NEG) NEG Urine Bilirubin (NEG) NEG Urine Urobilinogen (0.1 - 1.0 EU/dl) 0.2 Ur Leukocyte Esterase (NEG) NEG Ur Microscopic SEDIMENT EXAMINED Urine RBC (0 - 5 /HPF) 1-3 Urine WBC (0 - 2 /HPF) 1-3 H Ur Epithelial Cells (NONE,FEW) FEW Granular Casts (NONE /LPF) 5-10 H Urine Hemoglobin (NEG) SMALL H Urine Glucose (N MG/DL) NEG 10/20 1340 Chemistry Sodium (137 - 145 mmol/L) 141 Potassium (3.5 - 5.1 mmol/L) 3.7 Chloride (98 - 107 mmol/L) 106 Carbon Dioxide (22 - 30 mmol/L) 22 Anion Gap (5 - 16) 13 BUN (7 - 17 mg/dL) 13 Creatinine (0.5 - 1.0 mg/dL) 0.9 Estimated GFR (>60 ml/min) > 60 BUN/Creatinine Ratio (7 - 25 %) 14.4 Glucose (65 - 99 mg/dL) 98 Calcium (8.4 - 10.2 mg/dL) 9.0 Total Bilirubin (0.2 - 1.3 mg/dL) 0.6 AST (14 - 36 U/L) 17 ALT (9 - 52 U/L) 27 Alkaline Phosphatase (<127 U/L) 121 Troponin I (< 0.11 ng/ml) < 0.01 Total Protein (6.3 - 8.2 g/dL) 7.0 Albumin (3.5 - 5.0 g/dL) 3.7 Globulin (1.9 - 4.2 gm/dL) 3.3 Albumin/Globulin Ratio (1.1 - 2.2 %) 1.1 Prolactin (3.0 - 18.6 ng/mL) 19.7 H Hematology CBC w Diff NO MAN DIFF REQ WBC (4.8 - 10.8 /CUMM) 8.9 RBC (4.20 - 5.40 /CUMM) 4.50 Hgb (12.0 - 16.0 G/DL) 11.9 L Hct (37 - 47 %) 35.8 L MCV (81.0 - 99.0 FL) 79.6 L MCH (27.0 - 31.0 PG) 26.4 L RDW (11.5 - 14.5 %) 16.3 H Plt Count (130 - 400 /CUMM) 256 MPV (7.4 - 10.4 FL) 8.5 Gran % (42.2 - 75.2 %) 84.7 H Lymphocytes % (20.5 - 51.1 %) 8.6 L Monocytes % (1.7 - 9.3 %) 5.7 Eosinophils % (0 - 5 %) 0.7 Basophils % (0.0 - 2.0 %) 0.3 Absolute Granulocytes (1.4 - 6.5 /CUMM) 7.5 H Absolute Lymphocytes (1.2 - 3.4 /CUMM) 0.8 L Absolute Monocytes (0.10 - 0.60 /CUMM) 0.5 Absolute Eosinophils (0.0 - 0.7 /CUMM) 0.1 Absolute Basophils (0.0 - 0.2 /CUMM) 0 PUBS MCHC (33.0 - 37.0 G/DL) 33.[address] head degraded by patient motion 1. No acute intracranial pathology. 2. 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 3. Moderate thoracic ischemic disease. 4. Stable calcified meningioma along the left posterior falx. 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
--- NOTE | 2016-10-21 16:06 | Admission Certification ---
Admission Certification Certification Statement - As attending physician, I certify that at the time of - admission, based on clinical presentation, severity of - symptoms, need for further diagnostic testing and - therapeutic interventions, and risk of adverse outcomes - without in-hospital treatment, in my clinical assessment, - this patient requires an acute hospital stay for a minimum - of two nights or longer. I have also considered psychsocial - factors such as support system, advanced age, financial - issues, cognitive issues, and failed out-patient treatments, - past re-admission history, safety of patient, and lack of - compliance as applicable. Specific rationale supporting this admission is: New onset GTC seizure with dementia
[2016-10-21 16:26] VITALS: BP 140/90
[2016-10-21 16:29] VITALS: BP 140/90
[2016-10-21] MEDS ORDERED: KEPPRA500 M1 PO (17:42)
--- NOTE | 2016-10-21 17:46 | Patient Discharge Instructions ---
Discharge Instructions General Discharge Information You were seen/treated for: Seizure disorder secondary to Alzheimers Alzheimer's dementia Special Instructions: Please follow up with PCP within 1 week of discharge. Please follow up with neurology, Dr. Colón, within 1 week of discharge. Please take all medications as directed. Monitor for anorexia or behavioral changes. If these occur, contact neurology to discuss switching to a different anticonvulsant. Diet Recommended Diet: Regular Activity Activity Self Limited: Yes Acute Coronary Syndrome Inclusion Criteria At DC or during hospital stay patient has or had the following: ACS DIAGNOSIS No Discharge Core Measures Meds if any: Prescribed or Continued at Discharge Meds if any: NOT Prescribed or Continued at Discharge Congestive Heart Failure Inclusion Criteria At DC or during hospital stay patient has or had the following: CHF DIAGNOSIS No Discharge Core Measures Meds if any: Prescribed or Continued at Discharge Meds if any: NOT Prescribed or Continued at Discharge Cerebrovascular accident Inclusion Criteria At DC or during hospital stay patient has or had the following: CVA/TIA Diagnosis No Discharge Core Measures Meds if any: Prescribed or Continued at Discharge Meds if any: NOT Prescribed or Continued at Discharge Venous thromboembolism Inclusion Criteria VTE Diagnosis No VTE Type NONE VTE Confirmed by (Test) NONE Discharge Core Measures - Per Current guidelines, there needs to be overlap - treatment for the first 5 days of Warfarin therapy. - If discharged on Warfarin prior to 5 days of - overlap therapy, the patient will need to be - assessed for post discharge needs including - *Post discharge parental anticoagulation - *Warfarin and/or parental anticoagulation education - *Follow up date to check INR post discharge At least 5 days overlap therapy as Inpatient No Meds if any: Prescribed or Continued at Discharge Note: Overlap Therapy is Warfarin and Anticoagulant Meds if any: NOT Prescribed or Continued at Discharge
--- NOTE | 2016-10-21 21:52 | ELECTROENCEPHALOGRAM REPORT ---
Electroencephalogram Report Electroencephalogram Results Date of service: 10/21/16 Attending MD: MORGAN CHAVES MD Floriculture Teacher: Virgie CespedesGigi EEG Number: [id number] Test Utilizes: 21 electrode system Pertinent Hx/Physical/Neuro Findings/Clin Diagnosis: dementia seizure Inpatient Medications: Current Medications Sig/Fabby Start time Last Medication Dose Route Stop Time Status Admin Acetaminophen 650 MG Q6P PRN 10/20 2045 AC PO Docusate Sodium 100 MG DAILY 10/21 1000 AC 10/21 PO 0852 Heparin Sodium 5,000 UNIT Q8 10/20 2200 AC 10/21 (Porcine) SC 2117 Hydromorphone HCl 2 MG Q6P PRN 10/20 204 AC PO Levetiracetam 500 MG Q12H 10/21 1600 AC 10/21 Sodium Chloride 100 ML IV 1616 Levetiracetam 500 MG BID 10/21 0400 DC 10/21 Sodium Chloride 100 ML IV 0436 Lorazepam 0.5 MG TID 10/20 2200 AC 10/21 PO 10/27 2159 2117 Oxycodone/ 1 TAB Q6P PRN 10/20 2044 AC Acetaminophen PO Sertraline HCl 200 MG DAILY 10/21 1000 AC 10/21 PO 0851 Interpretation: Background is 5-6 cps activity. Muscle artifact obscures portions of recording. Pseudoperiodic complexes are seen in the central and temporal head regions bilaterally. Impression: Abnormal EEG due to background slowing indicative of diffuse cerebral dysfunction. Pseudoperiodic complexes may be potentially epileptic. Additional opinions on the nature of the complexes will be sought
[2016-10-22 00:10] VITALS: BP 152/100
[2016-10-22 08:04] VITALS: BP 150/98
--- NOTE | 2016-10-22 08:49 | PN- Housestaff ---
JORGERAYSHAWNJODIE LOBO 10/22/16 0849: Subjective Follow-up For: Seizure activity Tele-Events Since Last Visit: Sinus rhythm, PACs heart rate 80s to 90s Subjective: Seen and examined patient lying in bed not in distress. Does not answer any questions. No overnight events noted Review of Systems Constitutional: Denies: see HPI. Objective Last 24 Hrs of Vital Signs/I&O Vital Signs Date Time Temp Pulse Resp B/P Pulse O2 O2 Flow FiO2 Ox Delivery Rate 10/22 1504 98.8 80 20 150/98 10/22 0804 98.8 80 20 150/98 95 Room Air 10/22 0010 99.5 89 22 152/100 94 Room Air 10/21 1629 99.4 78 20 140/90 96 Room Air 10/21 1626 90 140/90 10/21 1600 Room Air Intake & Output 10/22 1600 10/22 0800 10/22 0000 Intake Total 820 100 720 Output Total Balance 820 100 720 Intake, IV 100 120 Intake, Oral 820 600 Physical Exam General Appearance: Alert, No Acute Distress Cardiovascular: Regular Rate, Normal S1, Normal S2 Lungs: Clear to Auscultation, Normal Air Movement Abdomen: Soft, No Tenderness Extremities: No Edema Current Medications: Current Medications Sig/Fabby Start time Last Medication Dose Route Stop Time Status Admin Acetaminophen 650 MG Q6P PRN 10/20 2044 AC PO Docusate Sodium 100 MG DAILY 10/21 1000 AC 10/22 PO 1039 Heparin Sodium 5,000 UNIT Q8 10/20 2199 AC 10/22 (Porcine) SC 0555 Hydromorphone HCl 2 MG Q6P PRN 10/20 2044 AC PO Levetiracetam 500 MG Q12H 10/21 1600 AC 10/22 Sodium Chloride 100 ML IV 0431 Lorazepam 0.5 MG TID 10/20 2199 AC 10/22 PO 10/27 2158 1039 Oxycodone/ 1 TAB Q6P PRN 10/20 2044 AC Acetaminophen PO Sertraline HCl 200 MG DAILY 10/21 1000 AC 10/22 PO 1039 Assessment/Plan Assessment: 71-year-old woman with PMH of alzheimers, parkinsons, aortic anerysm and HTN current admission for seizure-like activity. Chest x-ray showed no acute pulmonary disease, CT head was notable for chronic right inferior cerebellar infarct and encephalomalacia, stable calcified meningioma in the left posterior falx. EEG showed pseudo-periodic, but feels that could be potentially epileptic. Assessment and plan # Seizures * Maintain seizure precautions, neurology on board and will follow-up with them as outpatient * Will be discharged on by mouth Keppra 500 mg 1 tablet twice a day * on Keppra 500 mg BID IV for seizures #Anxiety and agitation * Continue zoloft 200 mg po qd 9am, hold trazodone for now * Avoid delirium triggers # Continue home meds Percocet 5/325 1 tabe tid 6am, 2pm, 9pm Ativan 0.5mg po tid 8am 2pm 8pm/hs Cranberry tab qd 9am Colace 100 mg po qd 9am Dulcolax 10 mg supp prn Fleet enema UT PRN Milk mag prn Tylenol 325 mg po for general discomfort Narcan PRN Diet: Regular and thins as per W1- DVT ppx: mech and pharm DNR/DNI (confirmed with daughter, POA) [facility] Problem List: 1. Seizure 2. Alzheimer's dementia Pain Ratin Pain Location: na Pain Goal: Pain 4 or less Pain Plan: current regimen Tomorrow's Labs & Rationales: none required MORGAN CHAVES MD 10/22/16 1403: Attending MD Review Statement Attending Statement Attending MD Statement: examined this patient, discuss w/resident/PA/MANAGER TRANSFUSION, agreed w/resident/PA/MANAGER TRANSFUSION, reviewed EMR data (avail) Attending Assessment/Plan: 71F PMH HTN, dementia admitted for new onset seizures. Patient had witnessed GTC seizure in SNF and in ED, and per family has been having similar episodes 1- 2x/yr for several years. Currently well with no complaints, stable vitals, labs reviewed. Plan - Admit to telemetry - Continue Keppra 500mg BID, change to PO - Neurology consult - EEG complete - Monitor electrolytes - Continue home medications - Seizure precautions - DVT PPx - Anticipated discharge tomorrow to [facility]
--- NOTE | 2016-10-22 11:33 | Discharge Summary ---
Visit Information Visit Dates Admission Date: 10/20/16 Discharge Date: 10/22/16 Hospital Course Course Attending Physician: MORGAN CHAVES MD Primary Care Physician: ARYAN RODRIGUEZ,POORNIMA Severino Consulting Request: Consulting Specialty: Neurology Hospital Course: This is a 71-year-old lady with past medical history significant for Alzheimer's disease, Parkinson's,aortic anerysm and HTN who presented for generalized shaking, suspicious for seizure. Patient is nonverbal at baseline and so much of the history was obtained from the [facility] as well as the nursing facility. Apparently patient has had baseline right arm and lip twitches as well as intermittent generalized shaking. Going through ED records revealed that she was brought in by ambulance from longterm facility after she was found to have trembling while taking a shower with him brief episode of unresponsiveness. Her blood pressure at that time was 100/72 with O2 saturations 94% on 15 L of nonrebreather mask however patient's oxygen saturations are 93% on room air. She had a 2 minute episode of generalized shaking associated with foaming at the mouth in the ED, for which keppra 500 mg IV and 1 mg IV ativan were given. Neurology was consulted. Vitals at the time of admission blood pressure 114/56, respiratory rate 22, pulse 75, afebrile saturating 93% on room air. Physical exam is much limited as patient is nonverbal and completely mute. HEENT revealed PERRLA, dry mucous membranes. Cardiovascular exam was benign with normal S1, S2, no S3 or S4 or murmurs or rubs or gallops appreciated. Chest was clear to auscultation bilaterally. Abdominal exam was benign and abdomen soft, nontender, nondistended with normal bowel sounds in all 4 quadrants. Examination of the lower extremities did not reveal any edema. Labs pertinent for microcytic anemia withan H&H of 11.9/35.8, platelet count of 256,000. Serum chemistries were unremarkable with a sodium of 141, potassium of 3.7, BUN 13, creatinine 0.9 and a normal blood glucose of 98. LFTs were unremarkable and troponin was negative at 0.01. Of note his serum prolactin was elevated to 19.4. UA is hazy with proteinuria, 1-3 white blood cells, granular casts and hemoglobin. Chest x-ray did not reveal any acute pulmonary disease and a CT head was negative for any acute intracranial pathology. 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 There is also stable calcified meningioma along the left posterior falx. EKG revealed normal sinus rhythm, heart rate of 83 with a QTC of 492. She was admitted to telemetry monitored service. The following problems were addressed during the course of her hospital stay: # Seizure Head CT negative for acute intracranial pathology, No evidence of bradycardia or arrythmias overnight. Neurology recommendations were followed, the patient was initially started on IV Keppra 500 mg twice a day she was later on changed to by mouth. Maintained on seizure precautions and aspiration precautions. EEG 10/21/2016 showed:Abnormal EEG due to background slowing indicative of diffuse cerebral dysfunction. Pseudoperiodic complexes may be potentially epileptic. Additional opinions on the nature of the complexes will be sought. Per Neurology,Observe for any status change on anticonvulsant medications including development of anorexia or behavioral change If any adverse effect is significant stop current anticonvulsant and switch to alternative agent (This was discussed with patient's daughter who will monitor her mother status); patient should have close follow-up as outpatient with neurology. #Anxiety and agitation She was maintained zoloft 200 mg po qd 9am. Delirium triggers were avoided. She was maintained on bowel regimen.(Dulcolax, Fleet enema, Colace). Diet: Regular and contains (as per [facility]) DVT prophylaxis with subcutaneous heparin. CODE STATUS: DNI DNR Complications: None Allergies: Coded Allergies: Penicillins (UNKNOWN 10/20/16) STATINS (UNKNOWN 03/22/15) Sulfa (Sulfonamide Antibiotics) (UNKNOWN 10/20/16) shellfish derived (UNKNOWN 10/20/16) SEAFOOD Uncoded Allergies: UNSPECIFIED MED (PER [facility] TO UNSPECIFIED MED? 05/25/14) Significant Procedures: EEG 10/21/2016 Interpretation: Background is 5-6 cps activity. Muscle artifact obscures portions of recording. Pseudoperiodic complexes are seen in the central and temporal head regions bilaterally. Impression: Abnormal EEG due to background slowing indicative of diffuse cerebral dysfunction. Pseudoperiodic complexes may be potentially epileptic. Additional opinions on the nature of the complexes will be sought Pertinent Lab Results: Laboratory Tests 10/21 10/20 0625 1410 Chemistry Sodium (137 - 145 mmol/L) 142 Potassium (3.5 - 5.1 mmol/L) 3.8 Chloride (98 - 107 mmol/L) 106 Carbon Dioxide (22 - 30 mmol/L) 25 Anion Gap (5 - 16) 10 BUN (7 - 17 mg/dL) 10 Creatinine (0.5 - 1.0 mg/dL) 0.9 Estimated GFR (>60 ml/min) > 60 BUN/Creatinine Ratio (7 - 25 %) 11.1 Hematology CBC w Diff NO MAN DIFF REQ WBC (4.8 - 10.8 /CUMM) 7.5 RBC (4.20 - 5.40 /CUMM) 4.50 Hgb (12.0 - 16.0 G/DL) 11.9 L Hct (37 - 47 %) 36.0 L MCV (81.0 - 99.0 FL) 79.9 L MCH (27.0 - 31.0 PG) 26.5 L RDW (11.5 - 14.5 %) 16.4 H Plt Count (130 - 400 /CUMM) 247 MPV (7.4 - 10.4 FL) 8.9 Gran % (42.2 - 75.2 %) 76.3 H Lymphocytes % (20.5 - 51.1 %) 15.5 L Monocytes % (1.7 - 9.3 %) 6.7 Eosinophils % (0 - 5 %) 1.1 Basophils % (0.0 - 2.0 %) 0.4 Absolute Granulocytes (1.4 - 6.5 /CUMM) 5.7 Absolute Lymphocytes (1.2 - 3.4 /CUMM) 1.2 Absolute Monocytes (0.10 - 0.60 /CUMM) 0.5 Absolute Eosinophils (0.0 - 0.7 /CUMM) 0.1 Absolute Basophils (0.0 - 0.2 /CUMM) 0 PUBS MCHC (33.0 - 37.0 G/DL) 33.2 Urines Urinalysis LIGHT H Urine Color (YEL,AMB,STR) YEL Urine Clarity (CLEAR) HAZY H Urine pH (5.0 - 8.0) 6.0 Ur Specific [place] (1.001 - 1.035) >= 1.030 Urine Protein (NEG,<30 MG/DL) 30 H Urine Ketones (NEG) NEG Urine Nitrite (NEG) NEG Urine Bilirubin (NEG) NEG Urine Urobilinogen (0.1 - 1.0 EU/dl) 0.2 Ur Leukocyte Esterase (NEG) NEG Ur Microscopic SEDIMENT EXAMINED Urine RBC (0 - 5 /HPF) 1-3 Urine WBC (0 - 2 /HPF) 1-3 H Ur Epithelial Cells (NONE,FEW) FEW Granular Casts (NONE /LPF) 5-10 H Urine Hemoglobin (NEG) SMALL H Urine Glucose (N MG/DL) NEG 10/20 1340 Chemistry Sodium (137 - 145 mmol/L) 141 Potassium (3.5 - 5.1 mmol/L) 3.7 Chloride (98 - 107 mmol/L) 106 Carbon Dioxide (22 - 30 mmol/L) 22 Anion Gap (5 - 16) 13 BUN (7 - 17 mg/dL) 13 Creatinine (0.5 - 1.0 mg/dL) 0.9 Estimated GFR (>60 ml/min) > 60 BUN/Creatinine Ratio (7 - 25 %) 14.4 Glucose (65 - 99 mg/dL) 98 Calcium (8.4 - 10.2 mg/dL) 9.0 Total Bilirubin (0.2 - 1.3 mg/dL) 0.6 AST (14 - 36 U/L) 17 ALT (9 - 52 U/L) 27 Alkaline Phosphatase (<127 U/L) 121 Troponin I (< 0.11 ng/ml) < 0.01 Total Protein (6.3 - 8.2 g/dL) 7.0 Albumin (3.5 - 5.0 g/dL) 3.7 Globulin (1.9 - 4.2 gm/dL) 3.3 Albumin/Globulin Ratio (1.1 - 2.2 %) 1.1 Prolactin (3.0 - 18.6 ng/mL) 19.7 H Hematology CBC w Diff NO MAN DIFF REQ WBC (4.8 - 10.8 /CUMM) 8.9 RBC (4.20 - 5.40 /CUMM) 4.50 Hgb (12.0 - 16.0 G/DL) 11.9 L Hct (37 - 47 %) 35.8 L MCV (81.0 - 99.0 FL) 79.6 L MCH (27.0 - 31.0 PG) 26.4 L RDW (11.5 - 14.5 %) 16.3 H Plt Count (130 - 400 /CUMM) 256 MPV (7.4 - 10.4 FL) 8.5 Gran % (42.2 - 75.2 %) 84.7 H Lymphocytes % (20.5 - 51.1 %) 8.6 L Monocytes % (1.7 - 9.3 %) 5.7 Eosinophils % (0 - 5 %) 0.7 Basophils % (0.0 - 2.0 %) 0.3 Absolute Granulocytes (1.4 - 6.5 /CUMM) 7.5 H Absolute Lymphocytes (1.2 - 3.4 /CUMM) 0.8 L Absolute Monocytes (0.10 - 0.60 /CUMM) 0.5 Absolute Eosinophils (0.0 - 0.7 /CUMM) 0.1 Absolute Basophils (0.0 - 0.2 /CUMM) 0 PUBS MCHC (33.0 - 37.0 G/DL) 33.2 Disposition Summary Disposition Principal Diagnosis: Seizure disorder secondary to Alzheimer's disease Additional Diagnosis: Advanced Alzheimer's disease Discharge Disposition: SNF Discharge Instructions General Discharge Information Code Status: Do Not Resucitate/Intubat Patient's Diet: Regular diet Patient's Activity: As tolerated Follow-Up Instructions/Appts: Please follow up with PCP within 1 week of discharge. Please follow up with neurology, Dr. Colón, within 1 week of discharge. Please take all medications as directed. Monitor for anorexia or behavioral changes. If these occur, contact neurology to discuss switching to a different anticonvulsant. Medications at Discharge Discharge Medications: Continue taking these medications: TRAZODONE HCL (Trazodone HCl) 100 MG TABLET 1 Tablet ORAL AT BEDTIME Oxycodone HCl/Acetaminophen (Percocet 5-325 MG Tablet) 5 MG-325 MG TABLET 1 Tablet ORAL THREE TIMES DAILY Lorazepam (Ativan) 0.5 MG TABLET 1 Tablet ORAL THREE TIMES DAILY Nitrofurantoin Monohyd/M-Cryst (Macrobid 100 MG Capsule) 100 MG CAPSULE 50 Milligram ORAL DAILY Trazodone HCl (Trazodone HCl) 50 MG TABLET 50 Milligram ORAL DAILY Trazodone HCl (Trazodone HCl) 50 MG TABLET 25 Milligram ORAL DAILY Sertraline HCl (Zoloft) 100 MG TABLET 200 Milligram ORAL DAILY Naloxone HCl (Narcan) 4 MG/ACTUATION SPRAY As Directed as needed for OPIOID OVERDOSE Docusate Sodium (Colace) 100 MG CAPSULE 1 Capsule ORAL DAILY Cranberry Extract (Cranberry) (Unknown Strength) CAPSULE Unknown Dose ORAL DAILY Acetaminophen (Tylenol) 325 MG TABLET 2 Tablet ORAL Q6HP as needed for PAIN/FEVER Acetaminophen (Acephen) 120 MG SUPP.RECT 650 Milligram RECTALLY Q6HP as needed for PAIN/FEVER Magnesium Hydroxide (Milk Of Magnesia) 400 MG/5 ML ORAL.SUSP 5 Milliliters ORAL TWICE DAILY as needed for CONSTIPATION Bisacodyl (Dulcolax) 10 MG SUPP.RECT 1 Suppository RECTAL DAILY as needed for CONSTIPATION IF MOM INEFFECTIV Na Phos,M-B/Na Phos,Di-Ba (Fleet Enema) 19 GRAM-7 GRAM/118 ML ENEMA 1 Enema RECTAL GIVE ONCE as needed for CONSTIPATION Start taking the following new medications: Levetiracetam (Keppra) 500 MG TABLET 1 Tablet ORAL TWICE DAILY Qty = 60 No Refills Copies To: ARYAN RODRIGUEZ,POORNIMA Severino
[2016-10-22 15:04] VITALS: BP 150/98
--- NOTE | 2016-10-23 04:15 | Discharge Summary ---
Hospital Course Course Consulting Request: Consulting Specialty: Neurology Allergies: Coded Allergies: Penicillins (UNKNOWN 10/20/16) STATINS (UNKNOWN 03/22/15) Sulfa (Sulfonamide Antibiotics) (UNKNOWN 10/20/16) shellfish derived (UNKNOWN 10/20/16) SEAFOOD Uncoded Allergies: UNSPECIFIED MED (PER [facility] TO UNSPECIFIED MED? 05/25/14) Discharge Instructions General Discharge Information Code Status: Do Not Resucitate/Intubat Medications at Discharge Discharge Medications: Continue taking these medications: TRAZODONE HCL (Trazodone HCl) 100 MG TABLET 1 Tablet ORAL AT BEDTIME Oxycodone HCl/Acetaminophen (Percocet 5-325 MG Tablet) 5 MG-325 MG TABLET 1 Tablet ORAL THREE TIMES DAILY Comments: NOT GIVEN IN HOSPITAL Lorazepam (Ativan) 0.5 MG TABLET 1 Tablet ORAL THREE TIMES DAILY Comments: Last Taken: 10/22/16 Time: 10:30 AM Nitrofurantoin Monohyd/M-Cryst (Macrobid 100 MG Capsule) 100 MG CAPSULE 50 Milligram ORAL DAILY Comments: NOT GIVEN IN HOSPITAL Trazodone HCl (Trazodone HCl) 50 MG TABLET 50 Milligram ORAL DAILY Comments: NOT GIVEN IN HOSPITAL Trazodone HCl (Trazodone HCl) 50 MG TABLET 25 Milligram ORAL DAILY Comments: NOT GIVEN IN HOSPITAL Sertraline HCl (Zoloft) 100 MG TABLET 200 Milligram ORAL DAILY Comments: Last Taken: 10/22/16 Time: 10:30 AM Naloxone HCl (Narcan) 4 MG/ACTUATION SPRAY As Directed as needed for OPIOID OVERDOSE Comments: NOT GIVEN IN HOSPITAL Docusate Sodium (Colace) 100 MG CAPSULE 1 Capsule ORAL DAILY Comments: Last Taken: 10/22/16 Time: 10:30 AM Cranberry Extract (Cranberry) (Unknown Strength) CAPSULE Unknown Dose ORAL DAILY Comments: NOT GIVEN IN HOSPITAL Acetaminophen (Tylenol) 325 MG TABLET 2 Tablet ORAL Q6HP as needed for PAIN/FEVER Comments: NOT GIVEN IN HOSPITAL Acetaminophen (Acephen) 120 MG SUPP.RECT 650 Milligram RECTALLY Q6HP as needed for PAIN/FEVER Comments: NOT GIVEN IN HOSPITAL Magnesium Hydroxide (Milk Of Magnesia) 400 MG/5 ML ORAL.SUSP 5 Milliliters ORAL TWICE DAILY as needed for CONSTIPATION Comments: NOT GIVEN IN HOSPITAL Bisacodyl (Dulcolax) 10 MG SUPP.RECT 1 Suppository RECTAL DAILY as needed for CONSTIPATION IF MOM INEFFECTIV Comments: NOT GIVEN IN HOSPITAL Na Ayla,M-B/Na PhoCapri jones-Ba (Fleet Enema) 19 GRAM-7 GRAM/118 ML ENEMA 1 Enema RECTAL GIVE ONCE as needed for CONSTIPATION Comments: NOT GIVEN IN HOSPITAL Start taking the following new medications: Levetiracetam (Keppra) 500 MG TABLET 1 Tablet ORAL TWICE DAILY Qty = 60 No Refills
== END 2016-10-22 15:15 | DRG 101 ==
LOC: ENRESERVTM → ENRESERVDT → ERH 12:48 → 1NO 16:00 → ENPENDDIS 16:00 → ERHI 16:00 → 1NO 18:50
PROVIDERS: Internal Medicine Infectious Disease; Physician Assistant; ADMIT Internal Medicine
DX: G40.89 Other seizures (principal); G20 Parkinson's disease; G30.9 Alzheimer's disease, unspecified; F02.80 Dementia in other diseases classified elsewhere, unspecified severity, without behavioral disturbance, psychotic disturbance, mood disturbance, and anxiety; I10 Essential (primary) hypertension; D32.9 Benign neoplasm of meninges, unspecified; I71.9 Aortic aneurysm of unspecified site, without rupture; K21.9 Gastro-esophageal reflux disease without esophagitis
CPT/HCPCS: 1NSP; 36415; 81001; 82436; 93005; 93010; 95816; 96374; 96375; 99291; J1644; J1953